=== PATIENT | female | born 1940 | race Native Hawaiian/Other Pacific Islander ===

== ENCOUNTER 2018-10-28 08:27 | Outpatient (CLI) | payer OTHER, MEDICARE ==
[2018-10-28 08:56] LABS: PLATELET COUNT 242 K/uL (152-353)
[2018-10-28 09:24] LABS: POTASSIUM 4.6 mmol/L (3.6-5.2)
== END 2018-10-28 23:17 | disposition home or self-care (01) ==
LOC: LABW 08:27
PROVIDERS: Internal Medicine
DX: E11.43 Type 2 diabetes mellitus with diabetic autonomic (poly)neuropathy (principal); E55.9 Vitamin D deficiency, unspecified
CPT/HCPCS: 36415; 80053; 80061; 81000; 82043; 82306; 82570; 83036; 84439; 84443; 85027

== ENCOUNTER 2018-11-25 10:20 | Outpatient (CLI) | payer OTHER, MEDICARE | END 2018-11-25 19:36 | disposition home or self-care (01) | LOC: RAD 10:20 | DX: M79.89 Other specified soft tissue disorders (principal); M17.12 Unilateral primary osteoarthritis, left knee ==

== ENCOUNTER 2019-01-01 08:44 | Outpatient (CLI) | payer OTHER, MEDICARE ==
[2019-01-01] MEDS ORDERED: GABA400C2 PO (09:09)
[2019-01-01] MEDS ORDERED: METF500T PO (09:09)
[2019-01-01] MEDS ORDERED: LISI10TA11 PO (09:10)
[2019-01-01] MEDS ORDERED: CLOP75TA2 PO (09:10)
[2019-01-01] MEDS ORDERED: PROTONIX20 MG PO (09:10)
[2019-01-01] MEDS ORDERED: MONT10TA PO (09:11)
[2019-01-01] MEDS ORDERED: LIPITOR40 MG PO (09:13)
[2019-01-01] MEDS ORDERED: SYMBICORT1 AE1 INH (09:14)
[2019-01-01] MEDS ORDERED: NOVOLOG SC (09:16)
[2019-01-01] MEDS ORDERED: BIOTIN5000 MCG PO (09:17)
[2019-01-01] MEDS ORDERED: B-122500 MCG PO (09:18)
[2019-01-01] MEDS ORDERED: [UNRECOGNIZED DRUG - CODE] PO (09:20)
== END 2019-01-01 08:53 | disposition short-term general hospital (02) ==
LOC: AMB 08:44
DX: M54.89 Other dorsalgia (principal)
CPT/HCPCS: A0425; A0427

== ENCOUNTER 2019-01-01 08:55 | Observation (INO) | payer OTHER, MEDICARE ==
[~2019-01-01] VITALS: Ht 160 cm; Wt 94.0 kg
[2019-01-01] VITALS (14 sets, daily range): BP systolic 111–190; BP diastolic 45–88; TEMP 97.5–98.6; Ht 160 cm; Wt 94.0 kg
[2019-01-01] MEDS ORDERED: GABA400C2 PO (09:09)
[2019-01-01] MEDS ORDERED: METF500T PO (09:09)
[2019-01-01] MEDS ORDERED: LISI10TA11 PO (09:10)
[2019-01-01] MEDS ORDERED: CLOP75TA2 PO (09:10)
[2019-01-01] MEDS ORDERED: PROTONIX20 MG PO (09:10)
[2019-01-01] MEDS ORDERED: MONT10TA PO (09:11)
[2019-01-01] MEDS ORDERED: LIPITOR40 MG PO (09:13)
[2019-01-01] MEDS ORDERED: SYMBICORT1 AE1 INH (09:14)
[2019-01-01] MEDS ORDERED: NOVOLOG SC (09:16)
[2019-01-01] MEDS ORDERED: BIOTIN5000 MCG PO (09:17)
[2019-01-01] MEDS ORDERED: B-122500 MCG PO (09:18)
[2019-01-01] MEDS ORDERED: [UNRECOGNIZED DRUG - CODE] PO (09:20)
[2019-01-01 15:53] LABS: PLATELET COUNT 229 K/uL (152-353)
[2019-01-01 16:08] LABS: POTASSIUM 4.7 mmol/L (3.6-5.2)
--- NOTE | 2019-01-01 20:46 | NUR ---
@1545 PT WAS VERY UPSET CRYING PT STATES SHE CAN NOT STAND IT PT CAN NOT SIT STILL CRYING AND VERY RESTLESS @[address] DE LA TORRE ORDERS WERE GIVEN FOR 50MCG OF FENTANYL AND 5MG OF VALIUM @1556 I TOOK BP 202/176 @1556 50MCG OF FENTANYL GIVEN IVSP @1559 BP WAS 180/153 @1604 10MG OF VALIUM GIVEN IVSP @1609 BP WAS 117/51, HR-86 SPO2 97% 3 L NC PT WAS RESTING IN BED WITH EYES CLOSED PT RESPONED APPROPRIATELY TO STEMULI AND VOICE STEMULI
== END 2019-01-01 22:45 | disposition short-term general hospital (02) ==
LOC: ED 08:55 → MED/SURG 11:20
PROVIDERS: ADMIT Internal Medicine
DX: M48.54XA Collapsed vertebra, not elsewhere classified, thoracic region, initial encounter for fracture (principal); M85.88 Other specified disorders of bone density and structure, other site; I10 Essential (primary) hypertension; E11.9 Type 2 diabetes mellitus without complications; N39.498 Other specified urinary incontinence; I73.89 Other specified peripheral vascular diseases; K21.9 Gastro-esophageal reflux disease without esophagitis
CPT/HCPCS: 80048; 85027; 85610; 96360; 96374; 96375; 99220; 99284; 99285; G0378; J2175; J2270; J2405; J3010; J3360

== ENCOUNTER 2019-01-15 14:00 | Inpatient (IN) | payer OTHER, MEDICARE ==
[~2019-01-15] VITALS: Ht 162.6 cm; Wt 91.3 kg
[~2019-01-15 14:00] MED LIST: B-122500 MCG PO; BIOTIN5000 MCG PO; CLOP75TA2 PO; GABA400C2 PO; LIPITOR40 MG PO; LISI10TA11 PO; METF500T PO; MONT10TA PO; NOVOLOG SC; PROTONIX20 MG PO; SYMBICORT1 AE1 INH; [UNRECOGNIZED DRUG - CODE] PO
[2019-01-15 15:16] VITALS: BP 121/54; TEMP 98; Ht 162.6 cm; Wt 91.3 kg
[2019-01-15] MEDS ORDERED: BUDE1AER5 INH (16:09)
[2019-01-15] MEDS ORDERED: BIOTIN MAXI10000 MC1 PO (16:15)
[2019-01-15] MEDS ORDERED: VITAMIN D22000 UNIT PO (16:17)
[2019-01-15] MEDS ORDERED: PANTOPRAZOLE 40MG TA PO (16:18)
[2019-01-15] MEDS ORDERED: CYCL10TA35 PO (16:24)
[2019-01-15] MEDS ORDERED: TRAMADOL HYDROC50 MG PO (16:25)
[2019-01-15] MEDS ORDERED: TIZA4TAB5 PO (16:26)
[2019-01-15] MEDS ORDERED: HUMALOG MI SC (16:39)
[2019-01-15 20:00] VITALS: BP 130/52; TEMP 98.2
[2019-01-16 08:00] VITALS: BP 136/56; TEMP 97.8
[2019-01-16 08:53] LABS: PLATELET COUNT 204 K/uL (152-353)
[2019-01-16 09:13] LABS: POTASSIUM 4.1 mmol/L (3.6-5.2)
[2019-01-16 11:14] VITALS: BP 136/56
[2019-01-16 20:00] VITALS: BP 125/46; TEMP 99.4
[2019-01-17 08:28] VITALS: BP 144/64; TEMP 98.2
[2019-01-17 20:17] VITALS: BP 113/47; TEMP 98.3
[2019-01-18 07:24] VITALS: BP 118/47; TEMP 98.2
[2019-01-18 20:00] VITALS: BP 131/61; TEMP 97.7
[2019-01-19 19:46] VITALS: BP 143/49; TEMP 98.4
[2019-01-20 19:45] VITALS: BP 105/38; TEMP 98
[2019-01-21 08:00] VITALS: BP 119/52; TEMP 97.7
[2019-01-21 20:00] VITALS: BP 136/48; TEMP 98.3
[2019-01-22 20:00] VITALS: BP 120/55; TEMP 98.1
[2019-01-23 08:08] VITALS: BP 141/57; TEMP 98.2
[2019-01-23 17:59] LABS: PLATELET COUNT 259 K/uL (152-353)
[2019-01-23 18:03] LABS: POTASSIUM 4.6 mmol/L (3.6-5.2)
[2019-01-23 19:59] VITALS: BP 165/72; TEMP 98
[2019-01-24 08:00] VITALS: BP 163/47; TEMP 97.9
[2019-01-24 20:02] VITALS: BP 99/44; TEMP 98.2
[2019-01-25 08:00] VITALS: BP 134/49; TEMP 97.8
[2019-01-25 19:41] VITALS: BP 113/59; TEMP 97.4
[2019-01-26 08:00] VITALS: BP 140/59; TEMP 98.1
[2019-01-26 20:00] VITALS: BP 106/43; TEMP 98.7
[2019-01-27 08:00] VITALS: BP 146/44; TEMP 97.6
[2019-01-27 20:00] VITALS: BP 121/46; TEMP 98.4
[2019-01-28 20:13] VITALS: BP 110/40; TEMP 97.2
[2019-01-29 05:17] LABS: PLATELET COUNT 219 K/uL (152-353)
[2019-01-29 05:56] LABS: POTASSIUM 4.7 mmol/L (3.6-5.2)
[2019-01-29 08:23] VITALS: BP 141/63; TEMP 97.7
[2019-01-29 19:55] VITALS: BP 132/55; TEMP 98.8
[2019-01-30 20:00] VITALS: BP 141/61; TEMP 98.3
[2019-01-31 20:00] VITALS: BP 119/58; TEMP 99.4
[2019-02-01 20:00] VITALS: BP 99/53; TEMP 98.9
[2019-02-02 08:00] VITALS: BP 150/51; TEMP 98.4
[2019-02-02 21:19] VITALS: BP 81/40; TEMP 98.3
[2019-02-03 08:00] VITALS: BP 122/53; TEMP 97.5
[2019-02-03 20:00] VITALS: BP 114/76; TEMP 97.9
== END 2019-02-04 12:50 | disposition home health service (06) | DRG 556 ==
LOC: MED/SURG 14:00
PROVIDERS: Family Medicine; Internal Medicine; ADMIT Internal Medicine
PROC: 3E0U33Z Introduction of Anti-inflammatory into Joints, Percutaneous Approach (ICD-10-PCS; principal; 2019-01-27)
PROC: 3E0U3BZ Introduction of Anesthetic Agent into Joints, Percutaneous Approach (ICD-10-PCS; 2019-01-27)
DX: M62.81 Muscle weakness (generalized) (principal); M48.56XA Collapsed vertebra, not elsewhere classified, lumbar region, initial encounter for fracture; M48.54XA Collapsed vertebra, not elsewhere classified, thoracic region, initial encounter for fracture; R62.7 Adult failure to thrive; I12.9 Hypertensive chronic kidney disease with stage 1 through stage 4 chronic kidney disease, or unspecified chronic kidney disease; E11.22 Type 2 diabetes mellitus with diabetic chronic kidney disease; N18.3 Chronic kidney disease, stage 3 (moderate); K21.9 Gastro-esophageal reflux disease without esophagitis; E78.49 Other hyperlipidemia; N39.498 Other specified urinary incontinence; M15.8 Other polyosteoarthritis; E66.01 Morbid (severe) obesity due to excess calories
CPT/HCPCS: 36415; 80053; 81000; 82607; 82947; 83036; 83090; 83605; 85027; 87077; 87086; 87088; 87186; G0283-GP; J1815; J3301

== ENCOUNTER 2019-04-17 12:01 | Outpatient (CLI) | payer OTHER, MEDICARE ==
[~2019-04-17 12:01] MED LIST changes: +BIOTIN MAXI10000 MC1 PO; +BUDE1AER5 INH; +CYCL10TA35 PO; +HUMALOG MI SC; +PANTOPRAZOLE 40MG TA PO; +TIZA4TAB5 PO; +TRAMADOL HYDROC50 MG PO; +VITAMIN D22000 UNIT PO
== END 2019-04-17 22:25 | disposition home or self-care (01) ==
LOC: LAB 12:01
DX: R30.0 Dysuria (principal)
CPT/HCPCS: 81000; 87077; 87086; 87088; 87186

== ENCOUNTER 2019-08-26 10:44 | Outpatient (CLI) | payer OTHER, MEDICARE ==
[2019-08-26 10:57] LABS: PLATELET COUNT 157 K/uL (152-353)
[2019-08-26 12:12] LABS: POTASSIUM 4.7 mmol/L (3.6-5.2)
== END 2019-08-26 22:29 | disposition home or self-care (01) ==
LOC: LABW 10:44
PROVIDERS: Internal Medicine
DX: E11.9 Type 2 diabetes mellitus without complications (principal); R82.998 Other abnormal findings in urine
CPT/HCPCS: 80053; 80061; 81000; 82043; 82570; 83036; 84439; 84443; 85027; 87077; 87086; 87088; 87186

== ENCOUNTER 2019-09-16 11:13 | Outpatient (CLI) | payer OTHER, MEDICARE | END 2019-09-16 19:25 | disposition home or self-care (01) | LOC: LAB 11:13 | DX: N39.0 Urinary tract infection, site not specified (principal) | CPT/HCPCS: 81000 ==

== ENCOUNTER 2019-11-04 10:47 | Outpatient (CLI) | payer OTHER, MEDICARE | END 2019-11-04 20:13 | disposition home or self-care (01) | LOC: LAB 10:47 | DX: N39.0 Urinary tract infection, site not specified (principal); R30.0 Dysuria | CPT/HCPCS: 81000; 87077; 87086; 87088; 87186 ==

== ENCOUNTER 2019-12-03 11:46 | Outpatient (CLI) | payer OTHER, MEDICARE | END 2019-12-03 19:03 | disposition home or self-care (01) | LOC: LAB 11:46 | DX: R30.0 Dysuria (principal) | CPT/HCPCS: 81000; 87086; 87088 ==

== ENCOUNTER 2019-12-08 09:39 | Outpatient (CLI) | payer OTHER, MEDICARE | END 2019-12-08 19:09 | disposition home or self-care (01) | LOC: LAB 09:39 | DX: N39.0 Urinary tract infection, site not specified (principal) | CPT/HCPCS: 81000; 87077; 87086; 87088; 87186 ==

== ENCOUNTER 2020-02-12 09:52 | Outpatient (CLI) | payer OTHER, MEDICARE ==
[2020-02-12 10:23] LABS: PLATELET COUNT 159 K/uL (152-353)
[2020-02-12 10:45] LABS: POTASSIUM 4.5 mmol/L (3.6-5.2)
== END 2020-02-12 19:40 | disposition home or self-care (01) ==
LOC: LAB 09:52
PROVIDERS: ATTEND Internal Medicine
DX: E11.9 Type 2 diabetes mellitus without complications (principal)
CPT/HCPCS: 80053; 80061; 81000; 83036; 84439; 84443; 85027

== ENCOUNTER 2020-05-26 15:20 | Outpatient (CLI) | payer OTHER, MEDICARE | END 2020-05-26 20:26 | disposition home or self-care (01) | LOC: RAD 15:20 | DX: R05 Cough (principal) ==

== ENCOUNTER 2020-09-06 08:58 | Outpatient (CLI) | payer OTHER, MEDICARE | END 2020-09-06 21:03 | disposition home or self-care (01) | LOC: US 08:58 | PROVIDERS: ATTEND Internal Medicine | DX: R09.89 Other specified symptoms and signs involving the circulatory and respiratory systems (principal) ==

== ENCOUNTER 2020-09-13 10:20 | Outpatient (CLI) | payer OTHER, MEDICARE ==
[2020-09-13 10:50] LABS: PLATELET COUNT 174 K/uL (152-353)
[2020-09-13 11:50] LABS: POTASSIUM 4.3 mmol/L (3.6-5.2)
== END 2020-09-13 19:37 | disposition home or self-care (01) ==
LOC: LAB 10:20
PROVIDERS: ATTEND Internal Medicine
DX: E11.9 Type 2 diabetes mellitus without complications (principal)
CPT/HCPCS: 80053; 80061; 81000; 83036; 84439; 84443; 85027

== ENCOUNTER 2020-10-25 15:29 | Outpatient (CLI) | payer OTHER, MEDICARE | END 2020-10-25 19:29 | disposition home or self-care (01) | LOC: LAB 15:29 | PROVIDERS: ATTEND Internal Medicine | DX: N39.0 Urinary tract infection, site not specified (principal) | CPT/HCPCS: 81000; 87086; 87088 ==

== ENCOUNTER 2021-01-12 15:06 | Outpatient (CLI) | payer OTHER, MEDICARE | END 2021-01-12 17:00 | disposition home or self-care (01) | LOC: LAB 15:06 | PROVIDERS: ATTEND Internal Medicine | DX: N39.0 Urinary tract infection, site not specified (principal) | CPT/HCPCS: 81000; 87088 ==

== ENCOUNTER 2021-06-05 11:48 | Outpatient (CLI) | payer OTHER, MEDICARE ==
[2021-06-05 12:40] LABS: PLATELET COUNT 169 K/uL (152-353)
[2021-06-05 13:05] LABS: POTASSIUM 4.5 mmol/L (3.6-5.2)
== END 2021-06-05 21:50 | disposition home or self-care (01) ==
LOC: LAB 11:48
PROVIDERS: ATTEND Internal Medicine
DX: E11.9 Type 2 diabetes mellitus without complications (principal)
CPT/HCPCS: 80053; 80061; 83036; 84439; 84443; 85027